=== PATIENT | male | born 1970 | race Caucasian/White ===

== ENCOUNTER 2023-01-11 15:09 | Emergency (ER) | payer MEDICAID ==
[2023-01-11] MEDS ORDERED: Sodium Chloride 0.9% 10 ML Syringe FLUSH PRN (15:26)
[2023-01-11] MEDS ORDERED: Thiamine 200 MG/2 ML MDV IVPUSH STA (15:27)
[2023-01-11] MEDS ORDERED: Sodium Chloride 0.9% 1,000 ML IV SCH ×2 (15:30→16:45)
[2023-01-11 16:05] LABS: BASOPHILS PERCENT AUTO 0.7 % (0.3-3.8); HEMATOCRIT 34.7 % (38.3-50.1); HEMOGLOBIN 11.4 g/dL (12.9-17.7); LYMPHOCYTES PERCENT AUTO 21.3 % (15.8-45.3); MEAN CORPUSCULAR HEMOGLOBIN 26.9 pg (27.0-33.3); MEAN CORPUSCULAR HGB CONC 32.9 g/dL (28.7-35.3); MEAN CORPUSCULAR VOLUME 81.6 fL (80.8-98.7); MEAN PLATELET VOLUME 6.5 fL (6.7-11.0); MONOCYTES ABSOLUTE AUTO 0.5 x10-3/uL (0.0-1.2); MONOCYTES PERCENT AUTO 10.9 % (5.5-15.2); NEUTROPHILS ABSOLUTE AUTO 3.2 x10-3/uL (1.7-6.9); NEUTROPHILS PERCENT AUTO 67.1 % (40.3-71.8); PLATELET COUNT,PLT 232 x10(3)uL (117-477); RED BLOOD CELL COUNT 4.25 x10(6)uL (3.90-5.90); RED CELL DISTRIBUTION WIDTH 19.9 % (12.4-15.0); WHITE BLOOD CELL COUNT,WBC 4.7 x10-3/uL (3.2-10.1)
[2023-01-11 16:10] LABS: ALANINE AMINOTRANSFERASE,ALT 11 U/L (12-36); ALBUMIN 3.9 g/dL (3.5-5.2); ALKALINE PHOSPHATASE 86 IU/L (56-112); ASPARTATE AMNIOTRANSFERASE,AST 13 IU/L (5-25); BILIRUBIN TOTAL 0.5 mg/dL (0.1-1.3); BLOOD UREA NITROGEN,BUN 5 mg/dL (7-18); BUN/CREATININE RATIO 1.8 (9-20); CALCIUM 9.2 mg/dL (8.6-10.2); CARBON DIOXIDE,CO2 28 mmol/L (21-32); CHLORIDE,CL 99 mmol/L (100-110); ESTIMATED GFR 26 mL/min (>60); GLUCOSE RANDOM 134 mg/dL (80-116); POTASSIUM,K 3.6 mmol/L (3.5-5.3); SODIUM,NA 136 mmol/L (135-145)
[2023-01-11 16:18] LABS: CREATININE 2.8 mg/dL (0.70-1.30)
[2023-01-11 16:38] LABS: AMPHETAMINES SCREEN, URINE NEGATIVE (NEGATIVE); BARBITURATE SCREEN,URINE NEGATIVE (NEGATIVE); BENZODIAZEPINES SCREEN,URINE NEGATIVE (NEGATIVE); METHADONE SCREEN, URINE NEGATIVE (NEGATIVE); METHAMPHETAMINE SCREEN, URINE NEGATIVE (NEGATIVE); OXYCODONE SCREEN,URINE NEGATIVE (NEGATIVE); PROPOXYPHENE SCREEN,URINE NEGATIVE (NEGATIVE); THC SCREEN,URINE NEGATIVE (NEGATIVE)
[2023-01-11 16:39] LABS: BUPRENORPHINE SCREEN,URINE NEGATIVE (NEGATIVE)
== END 2023-01-11 18:05 | disposition home or self-care (01) ==
LOC: FB.ED 15:09
DX: E86.0 Dehydration (principal); F10.20 Alcohol dependence, uncomplicated; N18.9 Chronic kidney disease, unspecified
CPT/HCPCS: 36415; 80053; 80307; 85025; 96361; 96374; 99284-25; J3411; J3490; J7030

== ENCOUNTER 2023-04-02 18:49 | Emergency (ER) | payer MEDICAID ==
[2023-04-02 19:16] LABS: BASOPHILS ABSOLUTE AUTO 0.1 x10-3/uL (0.0-0.3); BASOPHILS PERCENT AUTO 0.7 % (0.3-3.8); EOSINOPHILS ABSOLUTE AUTO 0.1 x10-3/uL (0.0-0.6); HEMATOCRIT 39.1 % (38.3-50.1); LYMPHOCYTES ABSOLUTE AUTO 2.7 x10-3/uL (0.5-4.5); LYMPHOCYTES PERCENT AUTO 38.6 % (15.8-45.3); MEAN CORPUSCULAR HEMOGLOBIN 27.5 pg (27.0-33.3); MEAN CORPUSCULAR HGB CONC 33.2 g/dL (28.7-35.3); MEAN PLATELET VOLUME 6.5 fL (6.7-11.0); MONOCYTES ABSOLUTE AUTO 0.5 x10-3/uL (0.0-1.2); MONOCYTES PERCENT AUTO 7.1 % (5.5-15.2); NEUTROPHILS ABSOLUTE AUTO 3.7 x10-3/uL (1.7-6.9); NEUTROPHILS PERCENT AUTO 52.6 % (40.3-71.8); PLATELET COUNT,PLT 382 x10(3)uL (117-477); RED BLOOD CELL COUNT 4.72 x10(6)uL (3.90-5.90); RED CELL DISTRIBUTION WIDTH 15.8 % (12.4-15.0)
[2023-04-02 19:20] LABS: BLOOD UREA NITROGEN,BUN 6 mg/dL (7-18); BUN/CREATININE RATIO 6.7 (9-20); CALCIUM 8.7 mg/dL (8.6-10.2); CARBON DIOXIDE,CO2 29 mmol/L (21-32); CHLORIDE,CL 107 mmol/L (100-110); CREATININE 0.9 mg/dL (0.70-1.30); ESTIMATED GFR 103 mL/min (>60); GLUCOSE RANDOM 145 mg/dL (80-116); POTASSIUM,K 3.7 mmol/L (3.5-5.3); SODIUM,NA 145 mmol/L (135-145)
[2023-04-02 19:24] LABS: ALANINE AMINOTRANSFERASE,ALT 14 U/L (12-36); ALBUMIN 3.9 g/dL (3.5-5.2); ALKALINE PHOSPHATASE 131 IU/L (56-112); ASPARTATE AMNIOTRANSFERASE,AST 17 IU/L (5-25); BILIRUBIN TOTAL 0.3 mg/dL (0.1-1.3)
== END 2023-04-02 20:00 ==
LOC: FB.ED 18:49
DX: Z02.89 Encounter for other administrative examinations (principal); F10.129 Alcohol abuse with intoxication, unspecified; I10 Essential (primary) hypertension; Z87.891 Personal history of nicotine dependence
CPT/HCPCS: 36415; 80053; 80307; 85025; 99283; 99284

== ENCOUNTER 2024-05-24 23:42 | Inpatient (IN) | payer MEDICAID ==
[2024-05-25] MEDS: Sodium Chloride 0.9% 1,000 ML IV ONE (00:05)
[2024-05-25] MEDS: LORazepam 2 MG/ML SDV IVPUSH ONE (00:06)
[2024-05-25 00:07] LABS: HEMATOCRIT 42.8 % (38.3-50.1); MEAN CORPUSCULAR HEMOGLOBIN 29.2 pg (27.0-33.3); MEAN CORPUSCULAR HGB CONC 35.1 g/dL (28.7-35.3); MEAN PLATELET VOLUME 7.6 fL (6.7-11.0); PLATELET COUNT,PLT 52 x10(3)uL (117-477); RED BLOOD CELL COUNT 5.16 x10(6)uL (3.90-5.90); RED CELL DISTRIBUTION WIDTH 16.3 % (12.4-15.0); WHITE BLOOD CELL COUNT,WBC 10.9 x10-3/uL (3.2-10.1)
[2024-05-25] MEDS: Ondansetron 4 MG/2 ML SDV IVPUSH ONE (00:07)
[2024-05-25 00:19] LABS: A/G RATIO 0.8; ALANINE AMINOTRANSFERASE,ALT 40 U/L (12-36); ALBUMIN 3.5 g/dL (3.5-5.2); ALKALINE PHOSPHATASE 191 IU/L (56-112); ASPARTATE AMNIOTRANSFERASE,AST 91 IU/L (5-25); BILIRUBIN TOTAL 3.8 mg/dL (0.1-1.3); BLOOD UREA NITROGEN,BUN 7 mg/dL (7-18); BUN/CREATININE RATIO 4.7 (9-20); CALCIUM 8.9 mg/dL (8.6-10.2); CARBON DIOXIDE,CO2 29 mmol/L (21-32); CREATININE 1.5 mg/dL (0.70-1.30); ESTIMATED GFR 56 mL/min (>60); GLUCOSE RANDOM 236 mg/dL (80-116); PROTEIN TOTAL,TP 7.7 g/dL (6.0-8.0); SODIUM,NA 133 mmol/L (135-145)
[2024-05-25 00:27] LABS: CHLORIDE,CL 87 mmol/L (100-110); EST CRCL DRUG DOSING (CG) 66.98 mL/min; POTASSIUM,K 1.9 mmol/L (3.5-5.3)
[2024-05-25] MEDS: Potassium Chloride 20 MEQ in Premix Bag 1 BAG IV ONE (00:45)
[2024-05-25] MEDS: Potassium Chloride 20 MEQ Tab.ER PO ONE (00:46)
[2024-05-25 00:47] LABS: LYMPHOCYTES PERCENT MAN 11 % (13-37); MONOCYTES PERCENT MAN 1 % (4-12); SEG NEUTROPHILS PERCENT MAN 88 % (46-82)
[2024-05-25 00:48] LABS: ANISOCYTOSIS FEW
[2024-05-25] MEDS: Iopamidol 755 Mg/ML 100 ML Bottle IV SCH (01:16)
[2024-05-25] MEDS: VITAMIN K IV SCH (01:35)
[2024-05-25] MEDS: NS IV SCH (01:35)
[2024-05-25] MEDS: KCL IV SCH (01:35)
[2024-05-25] MEDS: THIAMINE IV SCH (01:35)
[2024-05-25] MEDS: MVI IV SCH (01:35)
[2024-05-25] MEDS ORDERED: Magnesium Hydroxide 400 MG/5 ML Susp 30 ML Cup PO PRN (01:43)
[2024-05-25] MEDS: Magnesium Sulf/Wat 2 GM/50 mL 2 GM in Premix Bag 1 BAG IV ONE (01:57)
[2024-05-25] MEDS: Diazepam 2 MG Tab PO ONE (02:19)
[2024-05-25] MEDS: Ondansetron 4 MG/2 ML SDV IVPUSH PRN (02:19)
[2024-05-25] MEDS: LORazepam 2 MG/ML SDV IV PRN (04:46)
[2024-05-25] MEDS: Lactated Ringers 1,000 ML IV ONE (05:56)
[2024-05-25 06:31] LABS: BASOPHILS PERCENT AUTO 0.2 % (0.3-3.8); EOSINOPHILS PERCENT AUTO 0.1 % (0.1-6.8); HEMATOCRIT 37.7 % (38.3-50.1); LYMPHOCYTES ABSOLUTE AUTO 0.8 x10-3/uL (0.5-4.5); LYMPHOCYTES PERCENT AUTO 9.8 % (15.8-45.3); MEAN CORPUSCULAR HEMOGLOBIN 28.7 pg (27.0-33.3); MEAN CORPUSCULAR HGB CONC 34.6 g/dL (28.7-35.3); MEAN PLATELET VOLUME 7.7 fL (6.7-11.0); MONOCYTES ABSOLUTE AUTO 0.4 x10-3/uL (0.0-1.2); MONOCYTES PERCENT AUTO 5.5 % (5.5-15.2); NEUTROPHILS ABSOLUTE AUTO 6.5 x10-3/uL (1.7-6.9); NEUTROPHILS PERCENT AUTO 84.4 % (40.3-71.8); RED BLOOD CELL COUNT 4.54 x10(6)uL (3.90-5.90); WHITE BLOOD CELL COUNT,WBC 7.7 x10-3/uL (3.2-10.1)
[2024-05-25 06:42] LABS: A/G RATIO 0.8; ALANINE AMINOTRANSFERASE,ALT 37 U/L (12-36); ALBUMIN 3.1 g/dL (3.5-5.2); ALKALINE PHOSPHATASE 162 IU/L (56-112); ASPARTATE AMNIOTRANSFERASE,AST 85 IU/L (5-25); BILIRUBIN TOTAL 3.7 mg/dL (0.1-1.3); BLOOD UREA NITROGEN,BUN 5 mg/dL (7-18); BUN/CREATININE RATIO 6.3 (9-20); CALCIUM 8.3 mg/dL (8.6-10.2); CARBON DIOXIDE,CO2 37 mmol/L (21-32); CHLORIDE,CL 97 mmol/L (100-110); CREATININE 0.8 mg/dL (0.70-1.30); EST CRCL DRUG DOSING (CG) 123.83 mL/min; ESTIMATED GFR 106 mL/min (>60); GLUCOSE RANDOM 116 mg/dL (80-116); MAGNESIUM 2.1 mg/dL (1.8-2.5); PROTEIN TOTAL,TP 6.9 g/dL (6.0-8.0); SODIUM,NA 139 mmol/L (135-145)
[2024-05-25] MEDS: Magnesium Sulf 1 GM/2 mL SDV 1 GM in Sodium Chloride 0.9% 50 ML IV ONE (06:45)
[2024-05-25 06:47] LABS: POTASSIUM,K 2.6 mmol/L (3.5-5.3)
[2024-05-25 06:48] LABS: PLATELET COUNT,PLT 36 x10(3)uL (117-477)
[2024-05-25] MEDS: Acetaminophen 325 MG Tab PO PRN (10:12)
[2024-05-25] MEDS: Potassium Chloride 20 MEQ Tab.ER PO SCH (10:12)
[2024-05-25] MEDS: Sodium Chloride 0.9% 10 ML Syringe FLUSH PRN (10:16)
[2024-05-25] MEDS: NS + KCl 20mEq/L 1,000 ML IV SCH ×2 (10:54→16:48)
[2024-05-25] MEDS: Nicotine 21 MG/24 Hr Patch TRDERM SCH (16:46)
[2024-05-26 06:27] LABS: BASOPHILS PERCENT AUTO 0.2 % (0.3-3.8); EOSINOPHILS PERCENT AUTO 0.6 % (0.1-6.8); HEMATOCRIT 36.9 % (38.3-50.1); HEMOGLOBIN 12.7 g/dL (12.9-17.7); LYMPHOCYTES PERCENT AUTO 17.4 % (15.8-45.3); MEAN CORPUSCULAR HEMOGLOBIN 29.3 pg (27.0-33.3); MEAN CORPUSCULAR HGB CONC 34.4 g/dL (28.7-35.3); MEAN CORPUSCULAR VOLUME 85.1 fL (80.8-98.7); MEAN PLATELET VOLUME 7.8 fL (6.7-11.0); MONOCYTES ABSOLUTE AUTO 0.3 x10-3/uL (0.0-1.2); MONOCYTES PERCENT AUTO 5.3 % (5.5-15.2); NEUTROPHILS ABSOLUTE AUTO 4.4 x10-3/uL (1.7-6.9); NEUTROPHILS PERCENT AUTO 76.5 % (40.3-71.8); RED CELL DISTRIBUTION WIDTH 16.1 % (12.4-15.0); WHITE BLOOD CELL COUNT,WBC 5.8 x10-3/uL (3.2-10.1)
[2024-05-26 06:41] LABS: A/G RATIO 0.8; ALANINE AMINOTRANSFERASE,ALT 39 U/L (12-36); ALBUMIN 2.9 g/dL (3.5-5.2); ALKALINE PHOSPHATASE 155 IU/L (56-112); ASPARTATE AMNIOTRANSFERASE,AST 97 IU/L (5-25); BILIRUBIN TOTAL 3.1 mg/dL (0.1-1.3); CALCIUM 8.3 mg/dL (8.6-10.2); CARBON DIOXIDE,CO2 31 mmol/L (21-32); CHLORIDE,CL 105 mmol/L (100-110); CREATININE 0.9 mg/dL (0.70-1.30); EST CRCL DRUG DOSING (CG) 110.07 mL/min; ESTIMATED GFR 103 mL/min (>60); GLUCOSE RANDOM 136 mg/dL (80-116); POTASSIUM,K 2.9 mmol/L (3.5-5.3); PROTEIN TOTAL,TP 6.6 g/dL (6.0-8.0); SODIUM,NA 145 mmol/L (135-145)
[2024-05-26 06:42] LABS: PLATELET COUNT,PLT 40 x10(3)uL (117-477); RED BLOOD CELL COUNT 4.34 x10(6)uL (3.90-5.90)
[2024-05-26 06:43] LABS: BLOOD UREA NITROGEN,BUN < 5 mg/dL (7-18); BUN/CREATININE RATIO 5.6 (9-20)
[2024-05-26] MEDS: Ondansetron 4 MG Tab.DIS PO PRN (14:36)
[2024-05-27] MEDS: LORazepam 0.5 MG Tab PO PRN (00:23)
[2024-05-27 05:51] LABS: A/G RATIO 0.7; ALANINE AMINOTRANSFERASE,ALT 106 U/L (12-36); ALBUMIN 2.6 g/dL (3.5-5.2); ALKALINE PHOSPHATASE 188 IU/L (56-112); BILIRUBIN TOTAL 2.3 mg/dL (0.1-1.3); BLOOD UREA NITROGEN,BUN < 5 mg/dL (7-18); BUN/CREATININE RATIO 6.3 (9-20); CALCIUM 8.2 mg/dL (8.6-10.2); CARBON DIOXIDE,CO2 28 mmol/L (21-32); CHLORIDE,CL 103 mmol/L (100-110); CREATININE 0.8 mg/dL (0.70-1.30); EST CRCL DRUG DOSING (CG) 123.83 mL/min; ESTIMATED GFR 106 mL/min (>60); GLUCOSE RANDOM 103 mg/dL (80-116); MAGNESIUM 1.3 mg/dL (1.8-2.5); POTASSIUM,K 3.6 mmol/L (3.5-5.3); PROTEIN TOTAL,TP 6.3 g/dL (6.0-8.0); SODIUM,NA 140 mmol/L (135-145)
[2024-05-27 05:52] LABS: ASPARTATE AMNIOTRANSFERASE,AST 336 IU/L (5-25)
[2024-05-27] MEDS: Magnesium Sulf/Wat 4 GM/50 mL 4 GM in Premix Bag 1 BAG IV ONE (08:53)
== END 2024-05-27 11:25 | disposition home or self-care (01) | DRG 897 ==
LOC: FB.ED 23:42 → FB.MS 05-25 01:43
PROVIDERS: ADMIT Family Medicine; ATTEND Family Medicine
PROC: HZ2ZZZZ Detoxification Services for Substance Abuse Treatment (ICD-10-PCS; principal; 2024-05-25)
DX: F10.231 Alcohol dependence with withdrawal delirium (principal); K86.0 Alcohol-induced chronic pancreatitis; E87.6 Hypokalemia; M54.9 Dorsalgia, unspecified; G89.29 Other chronic pain; G40.909 Epilepsy, unspecified, not intractable, without status epilepticus; E83.42 Hypomagnesemia; I12.9 Hypertensive chronic kidney disease with stage 1 through stage 4 chronic kidney disease, or unspecified chronic kidney disease; F41.9 Anxiety disorder, unspecified; F32.A Depression, unspecified; R29.6 Repeated falls; K21.9 Gastro-esophageal reflux disease without esophagitis; F10.232 Alcohol dependence with withdrawal with perceptual disturbance; F12.90 Cannabis use, unspecified, uncomplicated; E86.0 Dehydration; N18.9 Chronic kidney disease, unspecified; Z98.890 Other specified postprocedural states; Z86.16 Personal history of COVID-19; Z72.0 Tobacco use
CPT/HCPCS: 36415; 70450; 74177; 80053; 82550; 83605; 83690; 83735; 85025; 85730; 93010; 96361; 96365; 96375; 97165-GO; 99222; 99232; 99239; 99285; 99285-25; A9270-GY; J2060; J2405; J3411; J3475; J3480; J7030; J7120; Q0162; Q9967